=== PATIENT | male | born 1965 | race Caucasian/White ===

== ENCOUNTER 2017-01-04 14:44 | Emergency (ER) | payer BC ==
[~2017-01-04] VITALS: Ht 172.7 cm; Wt 72.6 kg
[2017-01-04 15:01] VITALS: BP_SYST 138
--- NOTE | 2017-01-04 15:06 | NUR ---
Patient to ER bed 5 to gown for evaluation. Side rails up. Report given to Jimena CATHERINE.
--- NOTE | 2017-01-04 15:12 | NUR ---
Patient to ER C/O substernal non-radiating sharp pain 03/10, states that just before it happened he helped push a car and within 15 minutes he had the chest pain which lasted couple minutes, decreasing in intensiuty since. No N/V/D/C. AAOx4, unlabored breathing, no signs of acute distress.
--- NOTE | 2017-01-04 15:18 | NUR ---
ER MD Trevino at bedside for evaluation
[2017-01-04] MEDS ORDERED: ASPIRIN 81 MG TAB.CHEW PO ONE (15:30)
[2017-01-04] MEDS ORDERED: NITROGLYCERIN 1 INCH (GM) OINT. TP ONE (15:30)
[2017-01-04 15:40] LABS: BASOPHILS % (AUTO) 0.5 % (0.0-2.0); EOSINOPHILS # (AUTO) 0.1 K/uL (0.0-0.4); HEMATOCRIT 40.4 % (36-54); HEMOGLOBIN 13.7 g/dL (14.0-18.0); LYMPHOCYTES # (AUTO) 1.3 K/uL (1.0-5.5); MEAN CORPUSCULAR HEMOGLOBIN 30 pg (27-31); MEAN CORPUSCULAR HGB CONC 34 % (32-36); MEAN CORPUSCULAR VOLUME 88 fL (79.0-98.0); MONOCYTES # (AUTO) 0.3 K/uL (0.0-1.0); MONOCYTES % (AUTO) 4.9 % (1.7-9.3); NEUTROPHILS # (AUTO) 4.9 K/uL (1.8-7.7); NEUTROPHILS % (AUTO) 72.6 % (40.0-70.0); PLATELET COUNT (AUTO) 197 K/uL (130-430); RED CELL DISTRIBUTION WIDTH 12.4 % (9.0-15.0); WHITE BLOOD COUNT (AUTO) 6.6 K/uL (4.8-10.8)
[2017-01-04 15:54] LABS: CALCIUM 8.5 mg/dL (8.4-11.0); CREATININE 1.19 mg/dL (0.55-1.30); POTASSIUM 3.6 mmol/L (3.5-5.1)
[2017-01-04 15:59] LABS: ALBUMIN 3.9 g/dL (3.4-4.8); TOTAL BILIRUBIN 0.6 mg/dL (0.0-1.0)
[2017-01-04 16:11] LABS: INR 1.1 (0.80-1.20); PROTHROMBIN TIME 11.6 SECS (9.5-12.5)
--- NOTE | 2017-01-04 16:21 | NUR ---
Medication reconciliation - states "no home meds"
[2017-01-04 16:46] LABS: BILIRUBIN,URINE NEGATIVE (NEGATIVE); BLOOD, URINE NEGATIVE (NEGATIVE); CLARITY/URINE CLEAR (CLEAR); COLOR,URINE YELLOW (YELLOW); GLUCOSE,URINE NEGATIVE (NEGATIVE); KETONES,URINE NEGATIVE (NEGATIVE); LEUKOCYTE ESTERASE ,URINE NEGATIVE (NEGATIVE); NITRITE, URINE NEGATIVE (NEGATIVE); PROTEIN URINE NEGATIVE (NEGATIVE); UROBILINOGEN,URINE 0.2 (0.2-1.0)
[2017-01-04 17:04] VITALS: BP_SYST 123
--- NOTE | 2017-01-04 17:04 | NUR ---
Patient given written and verbal discharge instructions and verbalizes understanding. ER MD Trevino discussed with patient the results and treatment provided. Patient in stable condition. ID arm band removed. Patient educated on pain management and to follow up with PMD. Pain Scale 0/10. Opportunity for questions provided and answered.
== END 2017-01-04 17:04 | disposition home or self-care (01) ==
LOC: SED 14:44
DX: F41.9 Anxiety disorder, unspecified (principal)
CPT/HCPCS: 36415; 71010; 80053; 81003; 83880; 84484; 85025; 85610-TC; 93005; 99285

== ENCOUNTER 2017-01-04 21:10 | Emergency (ER) | payer BC ==
[~2017-01-04] VITALS: Ht 172.7 cm; Wt 72.6 kg
[2017-01-04 21:20] VITALS: BP 125/79; PULSE 57; RESP 18; TEMP 97.8; O2SAT 98
--- NOTE | 2017-01-04 21:46 | NUR ---
Patient to ER bed 3 to gown for evaluation. Side rails up. Report given to Jimena CATHERINE.
--- NOTE | 2017-01-04 21:58 | NUR ---
Patient returns to ER. He was seen earlier C/O chest pain. Now in ER C/O epigastric pain non-radiating, denies N/V/D/C. AAOx4, unlabored breathing, no signs of acute distress.
--- NOTE | 2017-01-04 22:36 | NUR ---
ER MD Del Rosario at bedside evaluating the patient
[2017-01-04] MEDS ORDERED: NACL 0.9% 1,000 ML IV ONE (23:23)
--- NOTE | 2017-01-04 23:29 | NUR ---
# 20 gauge angiocath placed to RIGHT AC. Use of asceptic technique. Opsite placed over site. Blood return noted. Blood for lab drawn from site. Flushed with 10 cc of normal saline. No evidence of infiltration noted. Patient tolerated well.
[2017-01-04] MEDS ORDERED: MAG-AL HYDROX/SIMETH 30 ML UDC PO ONE (23:30)
[2017-01-05 00:06] LABS: BASOPHILS % (AUTO) 0.5 % (0.0-2.0); EOSINOPHILS # (AUTO) 0.2 K/uL (0.0-0.4); EOSINOPHILS % (AUTO) 2.9 % (0.0-4.0); HEMATOCRIT 42.1 % (36-54); HEMOGLOBIN 14.4 g/dL (14.0-18.0); LYMPHOCYTES % (AUTO) 26.5 % (20.5-51.5); MEAN CORPUSCULAR HEMOGLOBIN 30 pg (27-31); MEAN CORPUSCULAR HGB CONC 34 % (32-36); MEAN CORPUSCULAR VOLUME 88 fL (79.0-98.0); MONOCYTES # (AUTO) 0.4 K/uL (0.0-1.0); MONOCYTES % (AUTO) 5.5 % (1.7-9.3); NEUTROPHILS # (AUTO) 4.8 K/uL (1.8-7.7); NEUTROPHILS % (AUTO) 64.6 % (40.0-70.0); PLATELET COUNT (AUTO) 222 K/uL (130-430); RED BLOOD CELL COUNT(AUTO) 4.78 MIL/uL (4.2-6.2); RED CELL DISTRIBUTION WIDTH 12.5 % (9.0-15.0); WHITE BLOOD COUNT (AUTO) 7.4 K/uL (4.8-10.8)
--- NOTE | 2017-01-05 00:21 | NUR ---
Kyrie scott, calm, denies pain. States that he feels much better.
[2017-01-05 00:27] LABS: CALCIUM 8.6 mg/dL (8.4-11.0); CREATININE 1.21 mg/dL (0.55-1.30); POTASSIUM 3.9 mmol/L (3.5-5.1)
[2017-01-05 00:32] LABS: ALBUMIN 3.8 g/dL (3.4-4.8); TOTAL BILIRUBIN 0.5 mg/dL (0.0-1.0)
[2017-01-05 00:43] LABS: PROTHROMBIN TIME 11.2 SECS (9.5-12.5)
[2017-01-05] MEDS ORDERED: PANTOPRAZOLE SODIUM 40 MG/VIAL (PROTONIX) IVP ONE (01:00)
[2017-01-05 01:25] VITALS: BP 122/76; PULSE 62; RESP 18; TEMP 98; O2SAT 99
--- NOTE | 2017-01-05 01:25 | NUR ---
Patient given written and verbal discharge instructions and verbalizes understanding. ER MD Del Rosario discussed with patient the results and treatment provided. Patient in stable condition. ID arm band removed. Rx of protonix given. Patient educated on pain management and to follow up with PMD. Pain Scale 0/10. Opportunity for questions provided and answered.
== END 2017-01-05 01:25 | disposition home or self-care (01) ==
LOC: SED 21:10
DX: R10.9 Unspecified abdominal pain (principal); F41.9 Anxiety disorder, unspecified
CPT/HCPCS: 36415; 80053; 83690; 84484; 85025; 85610; 93005; 96361; 96374; 99285; C9113; J7030